=== PATIENT | female | born 1980 | race American Indian/Alaskan Native ===

== ENCOUNTER 2016-03-03 16:03 | Inpatient (IN) | payer MEDICAID ==
[2016-03-03] MEDS: COREG PO SCH (00:09)
[2016-03-03] MEDS ORDERED: NACL 0.9% 500 ML 500 ML IV SCH (17:00)
[2016-03-03 19:51] LABS: Alanine Aminotransferase 7 units/L (7-56); Albumin 4.6 g/dL (3.9-5); Albumin/Globulin Ratio 1.3 %; Alkaline Phosphatase 103 units/L (35-129); Anion Gap 18 mmol/L; BUN/Creatinine Ratio 11.25; Bilirubin,Total 0.8 mg/dL (0.1-1.2); Blood Urea Nitrogen 9 mg/dL (7-17); Calcium 9.6 mg/dL (8.4-10.2); Carbon Dioxide 27 mmol/L (22-30); Chloride 98.1 mmol/L (98-107); Glucose 89 mg/dL (65-100); Potassium 3.8 mmol/L (3.6-5.0); Sodium 139 mmol/L (137-145); Total Protein 8.1 g/dL (6.3-8.2)
[2016-03-03 19:52] LABS: Creatine Kinase 163 units/L (30-135)
--- NOTE | 2016-03-03 22:52 | Event Note ---
Date: 03/03/16 See H/p in reports Chest pain-unstable angina HTN For PCI in AM
[2016-03-03] MEDS ORDERED: SODIUM CHLORIDE FLUSH SYRINGE 10 ML IV PRN (22:56)
[2016-03-03] MEDS ORDERED: LASIX PO SCH (23:00)
[2016-03-03 23:32] LABS: Basophils % (Auto) 0.4 % (0.0-1.8); Hematocrit 36.4 % (30.3-42.9); Hemoglobin 12.1 gm/dl (10.1-14.3); Mean Corpuscular HGB Conc 33 % (30-34); Mean Corpuscular Hemoglobin 28 pg (28-32); Mean Corpuscular Volume 85 fl (79-97); Platelet Count 244 K/mm3 (140-440); Red Blood Count 4.28 M/mm3 (3.65-5.03); Red Cell Distribution Width 13.1 % (13.2-15.2); White Blood Count 12.4 K/mm3 (4.5-11.0)
[2016-03-03 23:53] LABS: Creatine Kinase 144 units/L (30-135); Creatine Kinase MB < 1.0 ng/mL (0.0-4.0)
--- NOTE | 2016-03-03 23:57 | History and Physical Report ---
CHIEF COMPLAINT: Chest pain. HISTORY OF PRESENT ILLNESS: A 35-year-old female who underwent coronary angiography in 2006, which revealed normal coronary arteries, now presents for left-sided chest tightness. Also, orthopnea and chronic recurrent leg edema and exertional dyspnea. Dyspnea occurs with [id number] exertion. She has four pillow orthopnea. On Lasix 40 mg daily, for at least two years. Also, a brief episode of palpitations. She is admitted to [facility] for chest pain and was told that she had costochondritis. We could not access the labs. Now, she has a left-sided chest tightness and orthopnea and shortness of breath on minimal exertion. Class 4 NYHA symptoms. Also swelling of the legs. PAST MEDICAL HISTORY: Significant for hypertension, CHF, ____ questionable. Also, history of pulmonary embolism. PAST SURGICAL HISTORY: Cholecystectomy and hysterectomy. Exploratory laparotomy for adhesions. Coronary angiography in 2006 with normal coronary arteries. CURRENT MEDICATIONS: Lasix 40 mg once a day and potassium 20 mEq once a day, Pepcid 20 mg twice a day. REVIEW OF SYSTEMS: CONSTITUTIONAL: No weight gain, no weight loss. No fever, no chills. HEENT: No sore throat, no post nasal drip. No blurring of vision. RESPIRATORY: No cough, no wheezing. CARDIOVASCULAR: Exertional dyspnea. Orthopnea present. Chest tightness present. GASTROINTESTINAL: No nausea, no vomiting, no diarrhea. GENITOURINARY: No dysuria, no flank pain. MUSCULOSKELETAL: No joint pains. CENTRAL NERVOUS SYSTEM: No syncope, no seizures. SKIN: No rashes. PSYCHIATRIC: No depression. No suicidal or homicidal tendencies. HEMATOLOGIC AND LYMPHATIC: No bruising. A 14-point review of systems was done. Essentially negative other than the chest tightness, exertional dyspnea and orthopnea. PHYSICAL EXAMINATION: GENERAL: Young female, cooperative during examination. VITAL SIGNS: Blood pressure is 96/52, temperature is 98, pulse is 94, respirations are 18, sats 98%. HEENT: Unremarkable. Pupils equal and reactive. NECK: Supple, no lymphadenopathy, no thyromegaly. LUNGS: Clear to auscultation and percussion. Good air entry. CARDIOVASCULAR: S1, S2 heard. No gallop, no murmur, no rub. Apical impulse in left fifth intercostal space and midclavicular line. ABDOMEN: Soft and benign. No hepatosplenomegaly. No guarding, no rigidity. Hernial orifices are normal. EXTREMITIES: Good pedal pulses. No pedal edema. CENTRAL NERVOUS SYSTEM: Alert and oriented x 4, nonfocal exam. SKIN: Normal. LABORATORY DATA: Significant for normal electrolytes. Sodium is 139, potassium is 3.8, BUN and creatinine is 9 and 0.8. First CK is 163, CK-MB is 1.0, CK-MB index is 0.6. Troponin less than 0.010. EKG, normal sinus rhythm, heart rate of 90. There are nonspecific ST-T wave changes. No acute ST-T wave changes. ASSESSMENT AND PLAN: 1. Chest pain, unstable angina, rule out myocardial infarction, chest pain protocol. Cardiology will take her for PCI in the morning and also echocardiogram. Serial cardiac enzymes in the meantime. 2. Congestive heart failure. Continue Lasix 40 mg daily and potassium 20 mEq daily. Echocardiogram for evaluation of ejection fraction and valvular function. 3. Hypertension. Continue Coreg 3.125 q. 12h. Now the blood pressure is borderline low. We will use blood pressure medications judiciously. 4. Deep venous thrombosis prophylaxis, Lovenox 40 mg subcutaneous daily. JOB# [id number] NATHAN/NTS
[2016-03-04] MEDS ORDERED: TYLENOL PO PRN (00:47)
[2016-03-04 05:42] LABS: Basophils % (Auto) 0.4 % (0.0-1.8); Eosinophils % (Auto) 1.9 % (0.0-4.3); Hematocrit 36.3 % (30.3-42.9); Hemoglobin 11.9 gm/dl (10.1-14.3); Mean Corpuscular HGB Conc 33 % (30-34); Mean Corpuscular Hemoglobin 28 pg (28-32); Mean Corpuscular Volume 86 fl (79-97); Platelet Count 243 K/mm3 (140-440); Red Blood Count 4.23 M/mm3 (3.65-5.03); Red Cell Distribution Width 13.8 % (13.2-15.2); White Blood Count 11.3 K/mm3 (4.5-11.0)
[2016-03-04 05:51] LABS: BUN/Creatinine Ratio 16.25; Blood Urea Nitrogen 13 mg/dL (7-17); Calcium 8.8 mg/dL (8.4-10.2); Carbon Dioxide 26 mmol/L (22-30); Chloride 101.4 mmol/L (98-107); Glucose 89 mg/dL (65-100); INR 0.97 (0.87-1.13); Potassium 3.8 mmol/L (3.6-5.0); Sodium 139 mmol/L (137-145)
[2016-03-04 05:52] LABS: Partial Thromboplastin Time 29.9 Sec. (24.2-36.6)
[2016-03-04 05:56] LABS: Creatine Kinase 136 units/L (30-135)
[2016-03-04 06:02] LABS: Anion Gap 15 mmol/L
[2016-03-04 06:03] LABS: Creatine Kinase MB < 1.0 ng/mL (0.0-4.0)
[2016-03-04] MEDS ORDERED: ZOFRAN IV PRN (09:00)
--- NOTE | 2016-03-04 09:19 | Consultation ---
History of Present Illness Consult date: 03/04/16 Requesting physician: MILE WRIGHT Consult reason: chest pain History of present illness: The patient is a 35 year old female who saw Dr. Mitchell in the office last week with complaints of chest tightness and shortness of breath. She was scheduled to have a stress test and echo in the office later this week but presented to her PCPs office yesterday and was experiencing active chest pain. She was referred for direct admission. She reports chronic orthopnea and dyspnea on exertion but states that she has been experiencing more frequent chest tightness and shortness of breath that is worse with exertion and improves with rest and nitroglycerin. She also states that she was diagnosed with PE approximately 7 months ago and was taking coumadin but it has since been discontinued. Troponin negative x 3. Past History Past Medical History: heart failure, hypertension, pulmonary embolism Past Surgical History: cholecystectomy, hysterectomy, Other (ex. lap) Social history: denies: smoking, alcohol abuse, prescription drug abuse, IV drug use Family history: no significant family history Medications and Allergies Allergies Allergy/AdvReac Type Severity Reaction Status Date / Time erythromycin base Allergy Itching Verified 03/12/14 23:20 prochlorperazine Allergy Itching Verified 03/04/16 04:00 [From Compazine] prochlorperazine edisylate Allergy Itching Verified 03/04/16 04:00 [From Compazine] prochlorperazine maleate Allergy Itching Verified 03/04/16 04:00 [From Compazine] Home Medications Medication Instructions Recorded Confirmed Last Taken Type Carvedilol [Coreg] 3.125 mg PO BID 03/12/14 03/12/14 03/11/14 History Furosemide [Lasix] 20 mg PO BID 03/12/14 03/12/14 03/12/14 History Potassium Chloride 0 meq PO QDAY 03/12/14 03/12/14 03/12/14 History Active Meds: Active Medications Acetaminophen (Tylenol) 650 mg PO Q6H PRN PRN Reason: Pain, Mild (1-3) Last Admin: 03/04/16 01:08 Dose: 650 mg Carvedilol (Coreg) 3.125 mg PO BID WESLY Last Admin: 03/03/16 00:09 Dose: 3.125 mg Enoxaparin Sodium (Lovenox) 40 mg SUB-Q QDAY WESLY Furosemide (Lasix) 40 mg PO QDAY WESLY Ondansetron HCl (Zofran) 4 mg IV Q6H PRN PRN Reason: Nausea And Vomiting Last Admin: 03/04/16 08:38 Dose: 4 mg Potassium Chloride (K-Dur) 20 meq PO QDAY [facility] Sodium Chloride (Sodium Chloride Flush Syringe 10 Ml) 10 ml IV PRN PRN PRN Reason: LINE FLUSH Review of Systems Constitutional: no fever, no chills Ears, nose, mouth and throat: no nasal congestion, no nasal discharge, no sinus pressure Cardiovascular: chest pain, orthopnea, shortness of breath, dyspnea on exertion , leg edema Respiratory: shortness of breath, dyspnea on exertion, no cough, no congestion, no wheezing Gastrointestinal: no abdominal pain, no nausea, no vomiting, no diarrhea Genitourinary Female: no dysuria, no urgency Musculoskeletal: no neck stiffness, no neck pain, no myalgias Integumentary: no rash, no pruritis Neurological: no parathesias, no numbness, no tingling, no headaches Endocrine: no cold intolerance, no heat intolerance Hematologic/Lymphatic: no easy bruising, no easy bleeding Allergic/Immunologic: no urticaria, no wheezing Physical Examination Last Vital Signs Temp 97.7 F 03/04/16 08:00 Pulse 81 03/04/16 08:00 Resp 18 03/04/16 08:00 BP 108/79 03/04/16 08:00 Pulse Ox 99 03/04/16 08:00 General appearance: no acute distress, obese HEENT: Positive: PERRL, Normocephaly, Mucus Membranes Moist Neck: Positive: neck supple, trachea midline Cardiac: Positive: Reg Rate and Rhythm, S1/S2 Lungs: Positive: clear to auscultation Neuro: Positive: Grossly Intact Abdomen: Positive: Soft, Active Bowel Sounds. Negative: Tender Skin: Positive: Clear. Negative: Rash Extremities: Present: normal, +1 Edema (bilateral lower legs) Results 03/04/16 04:34 03/04/16 04:34 Cardiac Enzymes 03/03/16 03/03/16 03/03/16 Range/Units 18:46 18:46 23:04 AST 15 (5-40) units/L CK-MB (CK-2) 1.0 < 1.0 (0.0-4.0) ng/mL 03/04/16 Range/Units 04:34 AST (5-40) units/L CK-MB (CK-2) < 1.0 (0.0-4.0) ng/mL Coagulation 03/04/16 Range/Units 04:34 PT 12.8 (12.2-14.9) Sec. INR 0.97 (0.87-1.13) APTT 29.9 (24.2-36.6) Sec. CBC 03/03/16 03/04/16 Range/Units 23:04 04:34 WBC 12.4 H 11.3 H (4.5-11.0) K/mm3 RBC 4.28 4.23 (3.65-5.03) M/mm3 Hgb 12.1 11.9 (10.1-14.3) gm/dl Hct 36.4 36.3 (30.3-42.9) % Plt Count 244 243 (140-440) K/mm3 Lymph # 3.0 3.6 (1.2-5.4) K/mm3 Foard # 0.8 0.5 (0.0-0.8) K/mm3 Eos # 0.1 0.2 (0.0-0.4) K/mm3 Baso # 0.0 0.0 (0.0-0.1) K/mm3 Comprehensive Metabolic Panel 03/03/16 03/04/16 Range/Units 18:46 04:34 Sodium 139 139 (137-145) mmol/L Potassium 3.8 3.8 (3.6-5.0) mmol/L Chloride 98.1 101.4 (98-107) mmol/L Carbon Dioxide 27 26 (22-30) mmol/L BUN 9 13 (7-17) mg/dL Creatinine 0.8 0.8 (0.7-1.2) mg/dL Glucose 89 89 (65-100) mg/dL Calcium 9.6 8.8 (8.4-10.2) mg/dL AST 15 (5-40) units/L ALT 7 (7-56) units/L Alkaline Phosphatase 103 (35-129) units/L Total Protein 8.1 (6.3-8.2) g/dL Albumin 4.6 (3.9-5) g/dL - Imaging and Cardiology Echo: pending EKG: image reviewed EKG interpretations - Telemetry EKG Rhythm: Sinus Rhythm - EKG Sinus rhythms and dysrhythmias: sinus rhythm Repolarization changes or abnormalities: nonspecific abnormality, ST segment, and/or T wave Assessment and Plan Chest pain troponin negative x 3 await chest [facility]A [facility] tomorrow am Chronic heart failure await echo findings continue lasix, coreg Hypertension BP stable continue coreg Hx. of PE Obtain chest CTA. If negative, will proceed with left heart cath in am. The patient has been seen in conjunction with Dr. Gomes who agrees with the assessment and plan of care.
[2016-03-04] MEDS ORDERED: NON-FORMULARY (Potassium Chloride [Potassium Chloride] 20 MEQ) PO SCH (10:00)
[2016-03-04] MEDS ORDERED: NON-FORMULARY (Potassium Chloride [Potassium Chloride] 10 MEQ) PO SCH (10:00)
[2016-03-04] MEDS ORDERED: NACL ONE (10:07)
--- NOTE | 2016-03-04 11:01 | Cat Scan Report ---
CTA CHEST INDICATION: Dyspnea. Evaluate for pulmonary embolism. COMPARISON: None similar. FINDINGS: Chest CTA performed following intravenous administration of 100 cc of Omnipaque 350. Rotational MIP's also obtained. Top normal heart size. No effusions. No aortic aneurysm, dissection or suspicious pulmonary arterial filling defects. No size significant mediastinal or hilar adenopathy. Largest left axillary lymph node measures 1.5 cm, axial image 31, series 2. Patent airway. Unremarkable thyroid. Clear lungs. Nonspecific distal esophageal wall slight prominence, not excluded for gastroesophageal reflux and/or hiatal hernia, amongst others. Images through included upper abdomen reveal cholecystectomy clips and a couple of subcentimeter, indeterminate hepatic hypodensities. Slight thoracic spine degenerative spurring. CONCLUSION: No acute CT abnormality or evidence of pulmonary embolism with few incidental findings, as above. Thank you for the opportunity to participate in this patient's care.
[2016-03-04] MEDS: K-DUR PO SCH (12:18)
[2016-03-04] MEDS: COREG PO SCH ×2 (12:18→21:36)
[2016-03-04] MEDS: LOVENOX SUB-Q SCH (12:19)
[2016-03-04] MEDS: LASIX PO SCH (12:19)
--- NOTE | 2016-03-04 14:05 | Admit Criteria Form ---
Admission Criteria Documentation: CHEST PAIN Clinical Indications for Admission to Inpatient Care (Place 'X' for any and all applicable criteria): Admission is indicated for chest pain and ANY ONE of the following(1)(2)(3)(4)(5 ): [ ]I. Angina with acute coronary syndrome (Also use Myocardial Infarction or Angina guideline) [ ]II. Hemodynamic instability [X]III. Angina needing acute intervention as indicated by ALL of the following( 11)(12): [X]a) Unstable angina is present as indicated by angina that is ANY ONE of the following: [ ]i) New onset [ ]ii) Nocturnal [ ]iii) Prolonged at rest [X]iv) Progressive [X]b) Angina warrants acute intervention as indicated by ANY ONE of the following: [ ]i) Recurrent angina (e.g, not responding as previously to treatment) [ ]ii) Angina at rest or with low-level activities despite initial medical therapy [ ]iii) New or presumably new ST-segment depression on ECG [X]iv) Signs or symptoms of heart failure (eg, dyspnea, pulmonary edema) [ ]v) New or worsening mitral regurgitation [ ]vi) Hemodynamic instability [ ]vii) Dangerous arrhythmia (eg, sustained ventricular tachycardia) [ ]viii) History of percutaneous coronary intervention within 6 months [ ]ix) History of coronary artery bypass graft surgery [ ]x) ADAN risk score of 2 or greater[A] [ ]xi) History of Diabetes(14) [ ]xii) High-risk cardiac ischemia findings on noninvasive testing (e.g, echocardiogram, treadmill testing, nuclear scan) [ ]xiii) Chronic renal insufficiency (ie, estimated GFR less than 60 mL/min/1.732m) [ ]xiv) Left ventricular ejection fraction less than 40% [ ]IV. Evidence of VT (eg, cardiac biomarkers positive, ST-segment elevation on ECG) also use Myocardial Infarction Criteria Form. [ ]V. Pulmonary edema [ ]. Respiratory distress [ ]VII. Chest pain indicative of serious diagnosis other than coronary artery disease (eg, aortic dissection) [ ]VIII. Contraindications and/or Inappropriate clinical situations for Observational Care in patients with Chest Pain, when ANY ONE of the following is required: [ ]a) Patient with risk factor for pulmonary embolism, acute coronary syndrome and myocardial infarction (18) [ ]b) Patient with Pulmonary embolism require an average LOS of 4.3 days, therefore emergency department observation management is inappropriate 18,23 [ ]c) Painful condition/s in the elderly, have the highest rate of recidivism after emergency department observation management (10.8%) 20,21,22 [ ]d) Elevated cardiac biomarker requires intensive and exhaustive care (19) [ ]IX. General contraindications and/or Inappropriate clinical situations for Observational Care in patients with Chest Pain, when ANY ONE of the following is required: [ ]a) Prediction of prolongation of LOS based on ANY ONE of the following may be considered as a contraindication for observational care 2, 3, 4, 5, 6, 7, 8, 9, 10, 11 [ ]i) Age > 65 yrs. [ ]ii) Patient arriving by ambulance [ ]iii) Patient with high acuity [ ]iv) Patient requiring vital sign monitoring [ ]v) Patient on IV medication [ ]b) Systolic blood pressures 180mmHg 3,12 [ ]c) Patient with altered mental status including delirium and other alteration of consciousness, (3) [ ]d) Patient whose discharge disposition will be to a fpc home or rehabilitation home should not be managed in Emergency Department Observation Unit. CMS rule requires 3 days hospital stay before such placement. 3,13 [ ]e) Patient with failure to thrive due to broad array of etiologies 3,16,17 [ ]f) Inability to ambulate 3,14 Extended stay beyond goal length of stay may be needed for (1)(28): [ ]a) Specific condition diagnosed after evaluation (eg, pulmonary embolism, aortic dissection) [ ]b) Unstable angina [ ]c) Continued suspicion of acute coronary syndrome with inability to complete needed cardiac evaluation (eg, patient clinically unable to undergo stress testing) [ ]d) Myocardial infarction (Contents from ANGINA and CHEST PAIN clinical indications for admission to inpatient care have been integrated in this form) The original [employer] content created by [employer] has been revised. The portions of the content which have been revised are identified through the use of italic text or in bold, and [facility] has neither reviewed nor approved the modified material. All other unmodified content is copyright [employer] Please see references footnoted in the original [facility] [employer] edition 2016 Admission Criteria Met: Yes
--- NOTE | 2016-03-04 16:09 | Progress Note ---
Assessment and Plan Assessment and plan: She is a pleasant 35-year-old female with prior history of pulmonary embolism about 7 months ago was taken Coumadin but has since discontinued presented to the PCP office with complaint of cough shortness of breath and chest tightness. 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 The patient describes exertional improves at rest. On admission troponin was checked and is negative in a splint for cardiac catheterization. For definitive study. * Unstable angina * Chronic stable heart failure * Hypertension * History of PE Plan * Cardiology input appreciated patient is planned for left heart cath tomorrow * CTA chest is negative for pulmonary embolism * We'll continue with Lasix and Coreg * Nitroglycerin when necessary * Check lipid profile * DVT and GI prophylaxis * History discussed in detail with cardiology and also with patient. History Interval history: Follow-up chest pain Today reports mild improvement in the chest pain Patient seen and examined this morning in no acute distress Denies any nausea, vomiting, diarrhea No fever noted blood pressure controlled No adverse events reported to me by nursing staff Hospitalist Physical - Physical exam Narrative exam: VITAL SIGNS: Reviewed. GENERAL: The patient appeared well nourished and normally developed. Vital signs as documented. HEAD: No signs of head trauma. EYES: Pupils are equal. Extraocular motions intact. EARS: Hearing grossly intact. MOUTH: Oropharynx is normal. NECK: No adenopathy, no JVD. CHEST: Chest with clear breath sounds bilaterally. No wheezes, rales, or rhonchi. CARDIAC: Regular rate and rhythm. S1 and S2, without murmurs, gallops, or rubs. VASCULAR: No Edema. Peripheral pulses normal and equal in all extremities. ABDOMEN: Soft, without detectable tenderness. No sign of distention. No rebound or guarding, and no masses palpated. Bowel Sounds normal. MUSCULOSKELETAL: Good range of motion of all major joints. Extremities without clubbing, cyanosis or edema. NEUROLOGIC EXAM: Alert and oriented x 3. No focal sensory or strength deficits. Speech normal. Follows commands. PSYCHIATRIC: Mood normal. SKIN: No rash or lesions. - Constitutional Vitals: Temp Pulse Resp BP Pulse Ox 97.7 F 81 18 108/79 98 03/04/16 08:00 03/04/16 12:00 03/04/16 08:00 03/04/16 08:00 03/04/16 10:00 General appearance: Present: no acute distress, obese Results - Labs CBC & Chem 7: 03/04/16 04:34 03/04/16 04:34 Labs: Laboratory Last Values WBC 11.3 K/mm3 (4.5-11.0) H 03/04/16 04:34 RBC 4.23 M/mm3 (3.65-5.03) 03/04/16 04:34 Hgb 11.9 gm/dl (10.1-14.3) 03/04/16 04:34 Hct 36.3 % (30.3-42.9) 03/04/16 04:34 MCV 86 fl (79-97) 03/04/16 04:34 MCH 28 pg (28-32) 03/04/16 04:34 MCHC 33 % (30-34) 03/04/16 04:34 RDW 13.8 % (13.2-15.2) 03/04/16 04:34 Plt Count 243 K/mm3 (140-440) 03/04/16 04:34 Lymph % (Auto) 31.4 % (13.4-35.0) 03/04/16 04:34 Snyder % (Auto) 4.8 % (0.0-7.3) 03/04/16 04:34 Eos % (Auto) 1.9 % (0.0-4.3) 03/04/16 04:34 Baso % (Auto) 0.4 % (0.0-1.8) 03/04/16 04:34 Lymph # 3.6 K/mm3 (1.2-5.4) 03/04/16 04:34 Snyder # 0.5 K/mm3 (0.0-0.8) 03/04/16 04:34 Eos # 0.2 K/mm3 (0.0-0.4) 03/04/16 04:34 Baso # 0.0 K/mm3 (0.0-0.1) 03/04/16 04:34 Seg Neutrophils % 61.5 % (40.0-70.0) 03/04/16 04:34 Seg Neutrophils # 7.0 K/mm3 (1.8-7.7) 03/04/16 04:34 PT 12.8 Sec. (12.2-14.9) 03/04/16 04:34 INR 0.97 (0.87-1.13) 03/04/16 04:34 APTT 29.9 Sec. (24.2-36.6) 03/04/16 04:34 Sodium 139 mmol/L (137-145) 03/04/16 04:34 Potassium 3.8 mmol/L (3.6-5.0) 03/04/16 04:34 Chloride 101.4 mmol/L (98-107) 03/04/16 04:34 Carbon Dioxide 26 mmol/L (22-30) 03/04/16 04:34 Anion Gap 15 mmol/L 03/04/16 04:34 BUN 13 mg/dL (7-17) 03/04/16 04:34 Creatinine 0.8 mg/dL (0.7-1.2) 03/04/16 04:34 Estimated GFR > 60 ml/min 03/04/16 04:34 BUN/Creatinine Ratio 16.25 % 03/04/16 04:34 Glucose 89 mg/dL (65-100) 03/04/16 04:34 Calcium 8.8 mg/dL (8.4-10.2) 03/04/16 04:34 Total Bilirubin 0.8 mg/dL (0.1-1.2) 03/03/16 18:46 AST 15 units/L (5-40) 03/03/16 18:46 ALT 7 units/L (7-56) 03/03/16 18:46 Alkaline Phosphatase 103 units/L (35-129) 03/03/16 18:46 Total Creatine Kinase 136 units/L (30-135) H 03/04/16 04:34 CK-MB (CK-2) < 1.0 ng/mL (0.0-4.0) 03/04/16 04:34 CK-MB (CK-2) Rel Index 0.7 (0-4) 03/04/16 04:34 Troponin T < 0.010 ng/mL (0.00-0.029) 03/04/16 04:34 Total Protein 8.1 g/dL (6.3-8.2) 03/03/16 18:46 Albumin 4.6 g/dL (3.9-5) 03/03/16 18:46 Albumin/Globulin Ratio 1.3 % 03/03/16 18:46 - Imaging and Cardiology CT scan - chest: image reviewed (no acute pulmonary embolism noted)
--- NOTE | 2016-03-04 16:54 | Echocardiography Report ---
Transthoracic Echocardiogram Indication: CHEST PAIN BP: 111/62 HR: 86 Conclusions *Global left ventricular systolic function is normal. *The estimated ejection fraction is 55-60%. *There is mild mitral regurgitation. *The aortic valve is trileaflet. *A trivial pericardial effusion is visualized. Findings Procedure Info: The study quality is good. Left Ventricle: The left ventricular chamber size is normal. There is no left ventricular hypertrophy. Global left ventricular systolic function is normal. The estimated ejection fraction is 55-60%. Normal left ventricular diastolic filling is observed. Left Atrium: The left atrial chamber size is normal. Right Ventricle: The right ventricular cavity size is normal. The right ventricular global systolic function is normal. Right Atrium: The right atrial cavity size is normal. Aortic Valve: The aortic valve is trileaflet. There is no evidence of aortic regurgitation. There is no evidence of aortic stenosis. Mitral Valve: The mitral valve leaflets appear normal. There is mild mitral regurgitation. There is no evidence of mitral stenosis. Tricuspid Valve: The tricuspid valve leaflets are normal. There is no evidence of tricuspid valve regurgitation. There is no tricuspid stenosis. Pulmonic Valve: The pulmonic valve is not well visualized. There is trace pulmonic regurgitation. There is no pulmonic stenosis. Pericardium: A pericardial effusion is visualized. A trivial pericardial effusion is visualized. No pleural effusion is present. Measurements Chambers 2D Name Value Normal Range LVPWd 1 cm - LVIDd 3.95 cm - LVIDs 2.84 cm - LV EF (2D) 55 % - LA dimension 3.3 cm -
[2016-03-04] MEDS ORDERED: BENADRYL IV PRN (20:58)
[2016-03-04] MEDS: MORPHINE IV PRN (21:31)
[2016-03-05] MEDS: MORPHINE IV PRN (02:49)
[2016-03-05 05:38] VITALS: BP 92/53
[2016-03-05 05:59] LABS: INR 0.95 (0.87-1.13)
[2016-03-05 06:00] LABS: Partial Thromboplastin Time 30.9 Sec. (24.2-36.6)
[2016-03-05] MEDS ORDERED: NACL 0.9% 500 ML 500 ML IV SCH (07:00)
[2016-03-05] MEDS ORDERED: HEPARIN 10,000 UNITS/10 ML ONE (07:53)
[2016-03-05] MEDS ORDERED: VERSED ONE (07:53)
[2016-03-05] MEDS ORDERED: HEPARIN/NS 5000 UNIT/500ML(CATH LAB) 1,000 ML IR ONE (07:53)
[2016-03-05] MEDS ORDERED: CALAN ONE ×2 (07:54→08:02)
[2016-03-05] MEDS ORDERED: NITROGLYCERIN SYRINGE 3 ML ONE (07:54)
[2016-03-05] MEDS ORDERED: ECOTRIN PO ONE (07:54)
[2016-03-05] MEDS ORDERED: SUBLIMAZE ONE (07:56)
[2016-03-05] MEDS ORDERED: XYLOCAINE 2% INFILTRATI ONE (07:56)
--- NOTE | 2016-03-05 08:52 | Progress Note ---
Assessment and Plan Chest pain-->non cardiac troponin negative x 3 chest CTA negative for PE LHC: normal coronaries, normal LV function Exertional dyspnea Echo: EF 55-60%, normal diastolic function, mild MR Hypertension BP stable continue coreg Hx. of PE The patient has been seen in conjunction with Dr. Vanessa who agrees with the assessment and plan of care. Subjective Date of service: 03/05/16 Principal diagnosis: chest pain Interval history: Pt. seen and examined in the [employer] [place] this morning. No new complaints. Sinus rhythm on the monitor. Objective Last Vital Signs Temp 97.8 F 03/05/16 04:00 Pulse 72 03/05/16 04:00 Resp 18 03/05/16 04:00 BP 92/53 03/05/16 04:00 Pulse Ox 98 03/05/16 04:00 - Physical Examination General: No Apparent Distress HEENT: Positive: PERRL, Normocephaly, Mucus Membranes Moist Neck: Positive: neck supple, trachea midline Cardiac: Positive: Reg Rate and Rhythm, S1/S2 Lungs: Positive: clear to auscultation Neuro: Positive: Grossly Intact Abdomen: Positive: Soft, Active Bowel Sounds. Negative: Tender Skin: Positive: Clear. Negative: Rash Extremities: Present: normal, +1 Edema (bilateral lower legs) - Labs and Meds Coagulation 03/05/16 Range/Units 05:07 PT 12.6 (12.2-14.9) Sec. INR 0.95 (0.87-1.13) APTT 30.9 (24.2-36.6) Sec. - Imaging and Cardiology EKG: image reviewed Echo: report reviewed (02/2016: EF 55-60%, mild MR) - Telemetry EKG Rhythm: Sinus Rhythm - EKG Sinus rhythms and dysrhythmias: sinus rhythm Repolarization changes or abnormalities: nonspecific abnormality, ST segment, and/or T wave
--- NOTE | 2016-03-05 08:55 | Progress Note ---
Assessment and Plan chest pain mi r/o probably costochondtis guido history of pe rec: pt cardiac cath today normal coronaries and normal lv function and normal lvedp and cta of chest negative for pe and may be discharged from [facility] point of view and follow up with pcp in one week. Subjective Date of service: 03/05/16 Principal diagnosis: chest pain Interval history: pt is chest pain free today Objective Vital Signs Temp Pulse Pulse Pulse Resp BP Pulse Ox 03/05/16 04:00 97.8 F 72 18 92/53 98 03/05/16 00:29 97.7 F 91 H 18 164/86 97 03/04/16 20:00 98.0 F 75 83 18 100/62 97 03/04/16 16:45 97.6 F 83 18 121/84 98 03/04/16 12:00 81 03/04/16 10:00 98 - Physical Examination General: No Apparent Distress HEENT: Positive: PERRL, Normocephaly, Mucus Membranes Moist Neck: Positive: neck supple, trachea midline Cardiac: Positive: Reg Rate and Rhythm Lungs: Positive: clear to auscultation Neuro: Positive: Grossly Intact Abdomen: Positive: Soft, Active Bowel Sounds. Negative: Tender Skin: Positive: Clear. Negative: Rash Incision: Cardiac Cath Site (no hematoma) Extremities: Present: normal. Absent: edema - Labs and Meds Coagulation 03/05/16 Range/Units 05:07 PT 12.6 (12.2-14.9) Sec. INR 0.95 (0.87-1.13) APTT 30.9 (24.2-36.6) Sec. - Imaging and Cardiology EKG: image reviewed Echo: pending Cardiac cath: report reviewed (normal coronaries and normal lv function) - EKG Sinus rhythms and dysrhythmias: sinus rhythm Repolarization changes or abnormalities: nonspecific abnormality, ST segment, and/or T wave
--- NOTE | 2016-03-05 08:55 | Cardiac Catherization Report ---
Left heart catheterization done for a recurrent chest pain relieved with sublingual nitroglycerin, history of PE with a CTA of the chest was negative. Left heart catheterization performed via the right radial artery. Normal Willian's test, sterile technique, local anesthesia, 5-[place] radial sheath inserted. Left system engaged with a JL3.5 catheter. FINDINGS: Left main is large and patent, bifurcates to large LAD that is patent from proximally and distally. Diagonal 1 is a medium caliber vessel, it is patent. Ramus is a small to medium caliber vessel, it is patent. Circumflex and AV groove is a small to medium caliber vessel, patent, goes into small OM1 that is patent. RCA was engaged with JR4 catheter, is a large dominant vessel, patent from proximally to distally bifurcates into a [id number] caliber PDA and PLV that are patent. LV gram done in YVETTE and BARR view shows normal LV function. LVEDP is 8 mmHg, LV is 105/80, aortic is 100/66. No gradient across the aortic valve. EF is approximately 55% to 60%. SUMMARY: 1. Normal coronaries. 2. Normal LV function. 3. Noncardiac chest pain. JOB# [id number] NYDIA/SHARONA
--- NOTE | 2016-03-05 09:16 | Discharge Summary ---
Providers - Providers Date of Admission: 03/03/16 18:30 Date of discharge: 03/05/16 Attending physician: JUSTINE PRICE MD 03/03/16 Consult to Cardiac Rehabilitation [CONS] Routine Reason For Exam: Phase I 03/03/16 22:56 Consult to Physician [CONS] Routine Consulting Provider: CUONG ZULETA Reason For Exam: chest pain Place consult to:: Dr. Zuleta Notified:: Gerald SALINAS Phone number called:: Was contact made?: Yes If yes, spoke with:: [facility] Time called:: 08:06 03/05/16 08:50 Consult to Cardiac Rehabilitation [CONS] Routine Reason For Exam: Cardiac Rehab Evaluation Primary care physician: DJ INSTRUCTOR Hospitalization Reason for admission: chest pain Condition: Stable Hospital course: She is a pleasant 35-year-old female with prior history of pulmonary embolism about 7 months ago was taken Coumadin but has since discontinued presented to the PCP office with complaint of cough shortness of breath and chest tightness. She had initially seen yeast maker last week for the same was scheduled to have a stress test and echocardiogram later in the week pain persisted prompting her to go to the PCPs office was sent to the hospital. The patient describes exertional improves at rest. On admission troponin was checked and is negative in a splint for cardiac catheterization. The cath was done and did not show any significant stenosis of vessels. We'll essentially negative. Patient currently stable for discharge. She is to follow-up with her primary care physician for ongoing evaluation of age-appropriate screenings. Discharge diagnosis * A typical chest pain probable secondary to GERD * Chronic stable heart failure * Exertional dyspnea * Hypertension * History of PE Disposition: DISCHARGED TO HOME OR SELFCARE Time spent for discharge: 35 mins Core Measure Documentation - Palliative Care Palliative Care/ Comfort Measures: Not Applicable - Core Measures Any of the following diagnoses?: none - VTE Discharge Requirements Deep Vein Thrombosis/Pulmonary Embolism Present on Admission: No Exam - Physical Exam Narrative exam: VITAL SIGNS: Reviewed. GENERAL: The patient appeared well nourished and normally developed. Vital signs as documented. HEAD: No signs of head trauma. EYES: Pupils are equal. Extraocular motions intact. EARS: Hearing grossly intact. MOUTH: Oropharynx is normal. NECK: No adenopathy, no JVD. CHEST: Chest with clear breath sounds bilaterally. No wheezes, rales, or rhonchi. CARDIAC: Regular rate and rhythm. S1 and S2, without murmurs, gallops, or rubs. VASCULAR: No Edema. Peripheral pulses normal and equal in all extremities. ABDOMEN: Soft, without detectable tenderness. No sign of distention. No rebound or guarding, and no masses palpated. Bowel Sounds normal. MUSCULOSKELETAL: Good range of motion of all major joints. Extremities without clubbing, cyanosis or edema. NEUROLOGIC EXAM: Alert and oriented x 3. No focal sensory or strength deficits. Speech normal. Follows commands. PSYCHIATRIC: Mood normal. SKIN: No rash or lesions. - Constitutional Vitals: Temp Pulse Resp BP Pulse Ox 97.8 F 72 18 92/53 98 03/05/16 04:00 03/05/16 04:00 03/05/16 04:00 03/05/16 04:00 03/05/16 04:00 Plan Activity: advance as tolerated Diet: low fat Special Instructions: record daily BP diary Follow up with: PRIMARY CAREMD [Primary Care Provider] - 7 Days Forms: CardCath PCI D/C Instructions
[2016-03-05] MEDS: LOVENOX SUB-Q SCH (09:27)
[2016-03-05] MEDS: K-DUR PO SCH (09:27)
[2016-03-05] MEDS: LASIX PO SCH (09:27)
[2016-03-05] MEDS: COREG PO SCH (09:29)
== END 2016-03-05 13:57 | disposition home or self-care (01) | DRG 392 ==
LOC: UNDOADMIN 16:03 → 4A 16:03
PROVIDERS: ADMIT Internal Medicine; ATTEND Internal Medicine
PROC: 4A023N7 Measurement of Cardiac Sampling and Pressure, Left Heart, Percutaneous Approach (ICD-10-PCS; principal; 2016-03-05)
PROC: B2111ZZ Fluoroscopy of Multiple Coronary Arteries using Low Osmolar Contrast (ICD-10-PCS; 2016-03-05)
DX: K21.9 Gastro-esophageal reflux disease without esophagitis (principal); R06.01 Orthopnea; I11.0 Hypertensive heart disease with heart failure; I50.9 Heart failure, unspecified; G47.33 Obstructive sleep apnea (adult) (pediatric); R06.00 Dyspnea, unspecified; Z86.711 Personal history of pulmonary embolism; Z90.49 Acquired absence of other specified parts of digestive tract; Z90.710 Acquired absence of both cervix and uterus; Z98.890 Other specified postprocedural states; Z88.8 Allergy status to other drugs, medicaments and biological substances; Z88.1 Allergy status to other antibiotic agents; Z79.899 Other long term (current) drug therapy
CPT/HCPCS: 36415; 71275; 80048; 80053; 82550; 82553; 84484; 85025; 85610; 85730; 93005; 93010; 93306; 93458; C1894; J1200; J1644; J1650; J2250; J2270; J2405; J3010; J7040; Q9967